=== PATIENT | female | born 1985 | race Caucasian/White ===

== ENCOUNTER 2019-09-20 12:11 | Emergency (ER) | payer MEDICAID ==
--- NOTE | 2019-09-20 12:46 | EDM.PDOC ---
ED HPI GENERAL MEDICAL PROBLEM - General Chief Complaint: Laceration Time Seen by Provider: 09/20/19 12:15 Source of Information: Reports: Patient History Limitations: Reports: No Limitations - History of Present Illness INITIAL COMMENTS - FREE TEXT/NARRATIVE: Cut right wrist on car bumper Tetanus UTD Onset: Today, Sudden Duration: Hour(s): Location: Reports: Upper Extremity, Right - Related Data Allergies Allergy/AdvReac Type Severity Reaction Status Date / Time clindamycin Allergy Nausea and Verified 09/20/19 12:26 Vomiting levofloxacin [From Levaquin] Allergy Nausea and Verified 09/20/19 12:26 Vomiting morphine Allergy Nausea and Verified 09/20/19 12:26 Vomiting Home Meds: Home Meds . 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 History: Reports: Social & Family History - Tobacco Use Smoking Status *Q: Unknown Ever Smoked ED ROS GENERAL - Review of Systems Review Of Systems: See Below Skin: Reports: Wound (4 cm laceration) ED EXAM, SKIN/RASH Exam: See Below Location, Skin: Other (Right wrist with 4 cm superficial laceration to flexor surface Neurovascular and tendon exam intact) ED SKIN PROCEDURES - Laceration/Wound Repair Right Wrist Appearance: Superficial Distal NVT: Neuro & Vascular Intact, No Tendon Injury Skin Prep: Chlorhexidine (Hibiciens) Closed with: Wound Adhesive Lac/Wound length In cm: 4 Course - Vital Signs Last Recorded V/S: Last Vital Signs Temp 36.5 C 09/20/19 12:14 Pulse 86 09/20/19 12:14 Resp 16 09/20/19 12:14 BP 135/85 09/20/19 12:14 Pulse Ox 99 09/20/19 12:14 Departure - Departure Time of Disposition: 12:50 Disposition: Home, Self-Care 01 Clinical Impression: Wrist laceration Qualifiers: Encounter type: initial encounter Laterality: right Qualified Code(s): S61.511A - Laceration without foreign body of right wrist, initial encounter - Discharge Information Instructions: Laceration Care, Adult, Stitches, Alexandra, or Adhesive Wound Closure, [id number]-[id number] Additional Instructions: Follow up in clinic Sepsis Event Note - Evaluation Sepsis Screening Result: No Definite Risk - Focused Exam Vital Signs: Vital Signs Temp Pulse Resp BP Pulse Ox 09/20/19 12:14 36.5 C 86 16 135/85 99 Date Exam was Performed: 09/20/19 Time Exam was Performed: 12:42
== END 2019-09-20 12:52 | disposition home or self-care (01) ==
LOC: VM.ED 12:11
DX: S61.511A Laceration without foreign body of right wrist, initial encounter (principal); Z88.1 Allergy status to other antibiotic agents; Z88.5 Allergy status to narcotic agent; Z88.8 Allergy status to other drugs, medicaments and biological substances; W26.8XXA Contact with other sharp object(s), not elsewhere classified, initial encounter
CPT/HCPCS: 12002; 99282